=== PATIENT | female | born 1980 | race Caucasian/White ===

== ENCOUNTER 2023-12-20 09:00 | Outpatient (AMB) | payer OTHER, SELFPAY ==
--- NOTE | 2023-12-20 09:08 | A.OFFPC_ITS ---
Vital Signs 12/20/23 09:09 Height 5 ft 2 in Weight 144 lb BMI 26.3 BP 128/68 Blood Pressure Location Lt brachial Position Sitting Respiration 12 Pulse 92 Pulse Source Pulse Oximeter Pulse Oximetry (%) 99 Oxygen Delivery Method Room Air Intake Visit Reasons: Establish Care Intake Note: Patient is here to establish care. Patient reports she has nasal sinus pressure, dizziness, and bilateral ear pressure. Patient reports this has been deemed allergy related in the past. Patient reports she tried intermittent fasting and felt dizzy at night. This discouraged her from continuing. Patient reports she has felt bloated and indigestion on occasion. Patient reports an occasional migraine. Publicity Agent Required: No Allergies No Known Allergies Allergy (Verified 12/20/23 09:18) Medication List - Last Reconciled 12/20/23 by Aliza Bartlett MD doxycycline hyclate 100 mg PO BID 10 days norethindrone-ethin estradiol 0.5-35 mg-mcg (Nortrel) 1 tab PO DAILY Tobacco use date assessed: 12/20/23 Dental Screening Dental Screen Date: 12/20/23 Did you have a dental visit in the last 12 months?: Yes Did you have a dental problem in the last 6 months where you did not have access to dental care?: No Was dental information given to patient?: Patient has dentist HPI HPI Comments History of Present Illness Details 43 year old female with a past medical h istory history of headache, seasonal allergies [facility] Last seen a few years ago Has been having facial pain, ear fullness, discomfort in the teeth. Worse over past month. Has been a chronic issue for months, just worsening. Not using antihistamine. Denies fevers Has been doing intermittent fasting. Has had a few episodes where she has gone from sitting to standing and felt lightheaded. 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 She is calling to schedule. ROS No palpitations, chest pain, syncope PHYSICAL EXAM: GENERAL: Alert and oriented x 3. NAD EYES: EOMI. Anicteric. HENT: Moist mucous membranes. Bilateral clear middle ear effusions. Right canal narrowing. No scleral icterus. No cervical lymphadenopathy. LUNGS: Clear to auscultation bilaterally. CARDIOVASCULAR: Regular rate and rhythm. No murmur. No JVD. ABDOMEN: Soft, non-tender +bs EXTREMITIES: No edema. Non-tender. SKIN: No rashes or lesions. Warm. NEUROLOGIC: No focal neurological deficits. CN II-XII grossly intact PSYCHIATRIC: Cooperative. Appropriate mood and affect [facility] Medical History (Updated 12/22/23 @ 11:05 by Aliza Bartlett MD) Headache Sinusitis Surgical History No pertinent past surgical history Family History Mother High cholesterol Other No family history of alcoholism Social History Household Members: None Housing: Condominium Alcohol intake: current Alcohol intake frequency: a few times a month Alcohol type: beer and wine Patient Tobacco Use Status: Never used Tobacco e-Cigarette/Vaping Use: Never Used service: No Current occupational status: employed Current occupation: [employer] Cognitive needs: No Hearing needs: No Vision needs: No Questionnaire PHQ-9 Over the last 2 weeks, how often have you been bothered by any of the following problems? 1. Little interest or pleasure in doing things: not at all 2. Feeling down, depressed, or hopeless: not at all 3. Trouble falling or staying asleep, or sleeping too much: several days 4. Feeling tired or having little energy: several days 5. Poor appetite or overeating: not at all 6. Feeling bad about yourself - or that you are a failure or have let yourself or your family down: not at all 7. Trouble concentrating on things, such as reading the newspaper or watching television: not at all 8. Moving or speaking so slowly that other people could have noticed. Or the opposite - being so fidgety or restless that you have been moving around a lot more than usual: not at all 9. Thoughts that you would be better off or of hurting yourself in some way: not at all Total score: 2 Depression Screening Interpretation: Negative Depression Screening Done: Yes 79874 - PHQ-9 Billing: Yes Source: Developed by Drs. Valentín Ellington, Mora Whaley, Gustavo Caballero and colleagues, with an educational rené from [employer]. Thrive Questionnaire Date Thrive assessed: 12/20/23 I am a: Patient What is your living situation today?: I have a steady place to live Within the past 12 months, did the food you bought not last and you didn't have the money to get more?: Never true Within the past 12 months, did you worry whether your food would run out before you got money to buy more?: Never true Do you have trouble paying for medicines?: No Do you have trouble getting transportation to medical appointments?: No Do you have trouble paying your heating and electricity bill?: No Do you have trouble taking care of your child, family member or friend?: No Do you have trouble with day-to-day activities such as bathing, preparing meals, shopping, managing finances, etc.?: No Are you currently unemployed and looking for a job?: No Are you interested in more education?: No Please select the resources that you would like help with: None Currently or been in a relationship where the following occur: No concerns reported THRIVE Score: 0 AUDIT C Alcohol Use Questionnaire (AUDIT-C) 1. How often do you have a drink containing alcohol?: Monthly or less 2. How many drinks containing alcohol do you have on a typical day when you are drinking?: 1 or 2 3. How often do you have six or more drinks on one occasion?: Never Total Score: 1 CEDRIC-7 AMB Questionnaire CEDRIC-7 Date CEDRIC - 7 assessed: 12/20/23 Feeling nervous, anxious, or on edge: 1 = Several days Not being able to stop or control worryin = Several days Worrying too much about different things: 1 = Several days Trouble relaxin = Not at all Being so restless that it is hard to sit still: 0 = Not at all Becoming easily annoyed or irritable: 0 = Not at all Feeling afraid as if something awful might happen: 0 = Not at all Total CEDRIC-7 score (0-4 normal; 5-9 mild; 10-14 moderate; 15-21 severe): 3 Source: Developed by Drs. Valentín Ellington, Mora Whaley, Gustavo Caballero and colleagues, with an educational rené from [employer]. CEDRIC-7 Assessment Billing CEDRIC-7 Assessment Tool: CEDRIC-7 Assessment 20313 Physical exam (Primary Care) Vital Signs: Last Vital Signs Pulse 92 12/20/23 09:09 Resp 12 12/20/23 09:09 BP 128/68 12/20/23 09:09 Pulse Ox 99 12/20/23 09:09 Oxygen Delivery Method Room Air 12/20/23 09:09 BMI result Body Mass Index 26.3 Tobacco/Smoking Status: Tobacco use Status Tobacco use date assessed 12/20/23 12/20/23 09:22 Patient Tobacco Use Status Never used Tobacco 12/20/23 09:26 e-Cigarette/Vaping Use Never Used 12/20/23 09:26 PHQ-9: PHQ-9 Score PHQ-9: Total score 2 12/20/23 09:38 Depression Screening Interpretation: Negative Thrive Assessment: Date of Thrive Assessment Date Thrive assessed 12/20/23 12/20/23 09:22 Currently or been in a relationship where the following occur: No concerns reported Assessment and Plan Assessment & Plan (1) Headache: Code(s): R51.9 - Headache, unspecified Qualifiers: Headache type: other headache syndrome Qualified Code(s): G44.89 - Other headache syndrome (2) Light-headed: Code(s): R42 - Dizziness and giddiness (3) Sinusitis: Code(s): J32.9 - Chronic sinusitis, unspecified Qualifiers: Sinusitis location: maxillary Chronicity: subacute Qualified Code(s): J01.00 - Acute maxillary sinusitis, unspecified Plan: Trial antibiotic Recommend daily antihistamine, prn sudafed and/or nasal spray Orders: Orders Complete Blood Count Auto Diff 12/20/23 J32.9 - Chronic sinusitis, unspecified, R09.81 - Nasal congestion, Z13.0 - Encounter for screening for diseases of the blood and blood-forming organs and certain disorders involving the immune mechanism, Z13.220 - Encounter for screening for lipoid disorders, Z13.228 - Encounter for screening for other metabolic disorders Comprehensive Met. Panel 12/20/23 J32.9 - Chronic sinusitis, unspecified, R09.81 - Nasal congestion, Z13.0 - Encounter for screening for diseases of the blood and blood-forming organs and certain disorders involving the immune mechanism, Z13.220 - Encounter for screening for lipoid disorders, Z13.228 - Encounter for screening for other metabolic disorders Lipid Panel 12/20/23 J32.9 - Chronic sinusitis, unspecified, R09.81 - Nasal congestion, Z13.0 - Encounter for screening for diseases of the blood and blood- forming organs and certain disorders involving the immune mechanism, Z13.220 - Encounter for screening for lipoid disorders, Z13.228 - Encounter for screening for other metabolic disorders Medications: New doxycycline hyclate 100 mg PO BID 20 tabs 0RF 10 days omeprazole 20 mg PO DAILY 30 caps 0RF 30 days Coding Level of Care Code Est Pt Level 5 (99033) Diagnoses Other headache syndrome G44.89 Headache type: other headache syndrome Light-headed R42 Subacute maxillary sinusitis J01.00 Sinusitis location: maxillary Chronicity: subacute Additional Codes CEDRIC-7 Assessment Billing - CEDRIC-7 Assessment Tool: CEDRIC-7 Assessment [id number] ([id number])
[2023-12-20 09:09] VITALS: BP 128/68; PULSE 92; RESP 12; O2SAT 99; BMI 26.3
== END 2023-12-20 09:53 | disposition home or self-care (01) ==
PROVIDERS: Visit Provider Internal Medicine
DX: G44.89 Other headache syndrome (principal); R42 Dizziness and giddiness; J01.00 Acute maxillary sinusitis, unspecified
CPT/HCPCS: 99214

== ENCOUNTER 2023-12-20 10:17 | Outpatient (REF) | payer OTHER, SELFPAY ==
[2023-12-20 11:18] LABS: MANUAL DIFF FLAG NO
[2023-12-20 11:29] LABS: Basophils Percent Auto 0.4 % (0-2); Eosinophils Absolute Auto 0.3 X10*3/uL (0.0-0.4); Eosinophils Percent Auto 2.8 % (0-4); Hematocrit 42.5 % (37.0-47.0); Hemoglobin 13.6 g/dl (12.0-16.0); Imm Gran Abs Auto 0.03 X10*3/uL (0.00-0.03); Imm Gran Pct Auto 0.3 % (0.0-0.4); Lymphocytes Percent Auto 21.5 % (20-40); Mean Corpuscular Hemoglobin 26.3 pg (27.0-33.0); Mean Corpuscular Volume 82.2 fL (80.0-98.0); Mean Platelet Volume 10.3 fL (9.4-12.3); Monocytes Absolute Auto 0.6 X10*3/uL (0.1-1.2); Monocytes Percent Auto 6.8 % (2-11); Neutrophils Absolute Auto 6.3 x10*3/uL (2.0-8.3); Neutrophils Percent Auto 68.2 % (45-73); Platelet Count 349 X10*3/uL (160-400); Red Blood Count 5.17 X10*6/uL (4.20-5.50); Red Cell Distribution Width 13.4 % (11.0-16.0); White Blood Count 9.3 X10*3/uL (4.8-10.8)
[2023-12-20 11:56] LABS: Alanine Aminotransferase 15 U/L (0-31); Albumin Level 4.5 g/dL (3.5-5.0); Alkaline Phosphatase 34 U/L (39-117); Anion Gap 14 (12-20); Aspartate Amino Transferase 13 U/L (5-31); Bilirubin Total 0.7 mg/dL (0.0-1.0); Blood Urea Nitrogen 18 mg/dL (9-16); Calcium 9.4 mg/dL (8.4-10.2); Carbon Dioxide 24 mmol/L (22-29); Chloride 106 mmol/L (96-108); Cholesterol 193 mg/dL (<200); Estimated Glomerular Filt Rate > 60; Glucose Random 98 mg/dL (60-115); HDL Cholesterol 75 mg/dL (>40); LDL Cholesterol Calculated 102 mg/dL (<100); Sodium 140 mmol/L (135-145); Total Protein 7.2 g/dL (6.5-8.0); Triglycerides 80 mg/dL (<150)
== END 2023-12-20 10:18 | disposition home or self-care (01) ==
LOC: HO.WFDLDS 10:17
PROVIDERS: Visit Provider Internal Medicine
DX: J32.9 Chronic sinusitis, unspecified (principal); R09.81 Nasal congestion; Z13.220 Encounter for screening for lipoid disorders; Z13.0 Encounter for screening for diseases of the blood and blood-forming organs and certain disorders involving the immune mechanism; Z13.228 Encounter for screening for other metabolic disorders
CPT/HCPCS: 36415; 80053; 80061; 85025

== ENCOUNTER → 2024-09-22 09:26 | Outpatient (BNVA) | payer OTHER, SELFPAY | PROVIDERS: PCP Internal Medicine; Visit Provider Internal Medicine ==